=== PATIENT | male | born 1980 | race Two or more races ===

== ENCOUNTER 2022-06-25 07:02 | Inpatient (IN) | payer OTHER ==
[~2022-06-25] VITALS: Ht 182.9 cm; Wt 98.9 kg
[2022-06-30] MEDS ORDERED: PERCOCET 5-3251 EACH PO (08:13)
[2022-06-30] MEDS ORDERED: DUI500 PO (08:13)
[2022-06-30] MEDS ORDERED: ELIQUIS2.5 MG PO (08:13)
== END 2022-06-30 10:11 | disposition home or self-care (01) | DRG 464 ==
LOC: SURH 06-29 08:45 → O/R 06-29 14:59 → SURH 06-29 16:00 → SURG 06-29 22:18
PROVIDERS: ADMIT Orthopaedic Surgery; ATTEND Orthopaedic Surgery
PROC: 0SPB04Z Removal of Internal Fixation Device from Left Hip Joint, Open Approach (ICD-10-PCS; 2022-06-29)
PROC: 0QB70ZZ Excision of Left Upper Femur, Open Approach (ICD-10-PCS; 2022-06-29)
PROC: 3E10X8Z Irrigation of Skin and Mucous Membranes using Irrigating Substance (ICD-10-PCS; 2022-06-29)
PROC: 0JBM0ZZ Excision of Left Upper Leg Subcutaneous Tissue and Fascia, Open Approach (ICD-10-PCS; principal; 2022-06-29 16:00)
DX: T84.84XA Pain due to internal orthopedic prosthetic devices, implants and grafts, initial encounter (principal); S72.92 Unspecified fracture of left femur; M70.61 Trochanteric bursitis, right hip; Z20.822 Contact with and (suspected) exposure to COVID-19